=== PATIENT | female | born 1950 | race Caucasian/White ===

== ENCOUNTER 2016-07-07 16:02 | Outpatient (CLI) | payer OTHER ==
--- NOTE | 2016-07-07 17:36 | DIAGNOSTIC IMAGING REPORT ---
PROCEDURE: XR ANKLE 3 OR 4 VIEWS BILAT INDICATION: BILATERAL ANDKLE PAIN UNSPECIFIED CHRONICITY TECHNIQUE: Six views of each ankle, supine and upright standing. COMPARISON: None. 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 The ankle mortise is intact with no change with weightbearing. 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 The ankle mortise is intact with no change with weightbearing. IMPRESSION: 1. Right ankle: Normal ankle mortise with weightbearing. Subtalar osteoarthritis. 2. Left ankle: Normal ankle mortise with weightbearing. Subtalar osteoarthritis. 3. Results were called to Dr. Escamilla at 05:30 p.m.
== END 2016-07-07 23:00 ==
LOC: XR SRH 16:02
DX: M17.0 Bilateral primary osteoarthritis of knee (principal)

== ENCOUNTER 2016-07-31 12:23 | Outpatient (CLI) | payer OTHER ==
--- NOTE | 2016-07-31 15:20 | DIAGNOSTIC IMAGING REPORT ---
PROCEDURE: XR INTER JT INJ OR ASPIRATION (left subtalar joint) INDICATION: Left ankle pain and subtalar arthritis. TECHNIQUE: The patient was advised of the usual risks and complications of the procedure through an outside salesperson toy [employer] accessories as patient does not speak Thai. This included the risks of infection, bleeding, and allergy. The patient's son was present for the procedure (as requested). Right lateral decubitus position. Following sterile preparation and 1% lidocaine anesthetic, fluoroscopic guidance (2.0 minutes, 84.17 mGy) was utilized to place a 25-gauge needle into the lateral aspect of the left subtalar joint. Intraarticular position was confirmed with 1 ml of Isovue 200 contrast material. Subsequently, a 3 ml solution (1.5 mL 40 mg/mL Kenalog, 0.5 mL 1% lidocaine, 1 ml 0.5% Marcaine) was infused and the needle was withdrawn. COMPARISON: Comparison made radiographs of the left ankle on 07/07/2016. FINDINGS: Seven views. Confirmation of intraarticular injection. There are moderate arthritic changes of the left posterior subtalar joint. The patient tolerated the procedure reasonably well and was discharged home in satisfactory condition with instructions to resume routine activity, and to call for any untoward symptoms (increasing pain/swelling). IMPRESSION: 1. Successful fluoroscopically guided diagnostic/therapeutic injection of the left subtalar joint.
--- NOTE | 2016-07-31 15:20 | DIAGNOSTIC IMAGING REPORT ---
PROCEDURE: XR INTER JT INJ OR ASPIRATION (right subtalar joint). INDICATION: Right ankle pain and subtalar joint arthritis. TECHNIQUE: The patient was advised of the usual risks and complications of the procedure through an outside per diem interpreter as the patient does not speak Lithuanian. This included an explanation of possible infection, bleeding, and allergy. The patient's son was also present for the procedure (as requested) Left lateral decubitus position. Following sterile preparation and 1% lidocaine anesthetic, fluoroscopic guidance (3.0 minutes, 188.95 mGy) was utilized to place a 25-gauge needle into the lateral aspect of the right subtalar joint. Intraarticular position was confirmed with 1 mL of Isovue 200 contrast material. Subsequently, a 3 mL solution (1.5 mL 40 mg/mL Kenalog, 0.5 ml 1% lidocaine, 1 ml 0.5% Marcaine) was infused and the needle was withdrawn. COMPARISON: Comparison made radiographs of the right ankle on 07/07/2016. FINDINGS: Seven views. Confirmation of intraarticular injection. There are moderate arthritic changes of the right posterior subtalar joint. There is filling of the flexor hallucis tendon sheath as seen on lateral view (incidental finding). The patient tolerated the procedure reasonably well and was discharged home in satisfactory condition with instructions to resume routine activity, and to call for any untoward symptoms (increasing pain/swelling). IMPRESSION: 1. Successful fluoroscopically guided diagnostic/therapeutic injection of the right subtalar joint.
--- NOTE | 2016-07-31 15:20 | DIAGNOSTIC IMAGING REPORT ---
PROCEDURE: XR INTER JT INJ OR ASPIRATION (left subtalar joint) INDICATION: Left ankle pain and subtalar arthritis. TECHNIQUE: The patient was advised of the usual risks and complications of the procedure through an outside director marketing analytics as patient does not speak Italian. This included the risks of infection, bleeding, and allergy. The patient's son was present for the procedure (as requested). Right lateral decubitus position. Following sterile preparation and 1% lidocaine anesthetic, fluoroscopic guidance (2.0 minutes, 84.17 mGy) was utilized to place a 25-gauge needle into the lateral aspect of the left subtalar joint. Intraarticular position was confirmed with 1 ml of Isovue 200 contrast material. Subsequently, a 3 ml solution (1.5 mL 40 mg/mL Kenalog, 0.5 mL 1% lidocaine, 1 ml 0.5% Marcaine) was infused and the needle was withdrawn. COMPARISON: Comparison made radiographs of the left ankle on 07/07/2016. FINDINGS: Seven views. Confirmation of intraarticular injection. There are moderate arthritic changes of the left posterior subtalar joint. The patient tolerated the procedure reasonably well and was discharged home in satisfactory condition with instructions to resume routine activity, and to call for any untoward symptoms (increasing pain/swelling). IMPRESSION: 1. Successful fluoroscopically guided diagnostic/therapeutic injection of the left subtalar joint.
== END 2016-07-31 23:00 | disposition home or self-care (01) ==
LOC: XR SRH 12:23
PROC: 3E0U33Z Introduction of Anti-inflammatory into Joints, Percutaneous Approach (ICD-10-PCS; principal; 2016-07-31)
PROC: 3E0U33Z Introduction of Anti-inflammatory into Joints, Percutaneous Approach (ICD-10-PCS; 2016-07-31)
DX: M19.079 Primary osteoarthritis, unspecified ankle and foot (principal)
CPT/HCPCS: 82445

== ENCOUNTER 2016-10-16 15:09 | Outpatient (CLI) | payer OTHER ==
--- NOTE | 2016-10-16 15:35 | DIAGNOSTIC IMAGING REPORT ---
PROCEDURE: XR KNEE 4 VIEWS - LEFT INDICATION: L KNEE ACUTE PAIN TECHNIQUE: Four views. COMPARISON: None. FINDINGS: Osseous structures and joint spaces are normal. IMPRESSION: 1. Normal right knee.
== END 2016-10-16 23:00 | disposition home or self-care (01) ==
LOC: XR SRH 15:09
DX: M25.562 Pain in left knee (principal)